=== PATIENT | male | born 1965 | race Caucasian/White ===

== ENCOUNTER 2020-02-27 05:35 | Emergency (ER) | payer MEDICAID ==
[~2020-02-27] VITALS: Ht 175.3 cm; Wt 62.1 kg
[2020-02-27 05:40] VITALS: Ht 175.3 cm; Wt 62.1 kg
[2020-02-27 06:59] LABS: BASOPHIL % 1.3 % (0-2); RED CELL DISTRIBUTION WIDTH 13.1 % (11.5-14.5)
[2020-02-27 07:15] LABS: CALCIUM 9.2 mg/dL (8.5-10.1); CARBON DIOXIDE 32.8 mmol/L (21-32); CHLORIDE SERUM 96 mmol/L (98-107); GFR1 > 60 mL/min; GLUCOSE SERUM 113 mg/dL (74-106); POTASSIUM SERUM 3.5 mmol/L (3.5-5.1); SODIUM SERUM 135 mmol/L (136-145)
[2020-02-27 07:16] LABS: ALKALINE PHOSPHATASE 93 U/L (46-116); ALT/SGPT 35 U/L (16-63); AST/SGOT 31 U/L (15-37); BILIRUBIN TOTAL 0.2 mg/dL (0.20-1.00); LIPASE 68 IU/L (73-393)
[2020-02-27 07:18] LABS: PLATELET COUNT 639 x10^3mcL (130-400)
[2020-02-27 07:21] LABS: ALBUMIN 3.2 g/dL (3.4-5.0)
[2020-02-27 07:52] LABS: microscopic required? NO
[2020-02-27 08:20] LABS: AMPHETAMINE QUAL UR NONE DETECTED (See below)
[2020-02-27 08:21] LABS: UA SPECIFIC GRAVITY 1.015 (1.005-1.035); urine erythrocyte NEGATIVE (NEGATIVE)
[2020-02-27 09:00] VITALS: BP 135/78
[2020-02-27] MEDS ORDERED: KEPPRA750 MG PO (13:44)
== END 2020-02-27 09:00 | disposition home or self-care (01) ==
LOC: ED 05:35
PROVIDERS: Emergency Medicine
DX: G89.18 Other acute postprocedural pain (principal); D64.9 Anemia, unspecified; E46 Unspecified protein-calorie malnutrition; F12.20 Cannabis dependence, uncomplicated; G40.909 Epilepsy, unspecified, not intractable, without status epilepticus; G83.89 Other specified paralytic syndromes; F17.210 Nicotine dependence, cigarettes, uncomplicated; Z59.0 Homelessness; Z90.49 Acquired absence of other specified parts of digestive tract; Z88.8 Allergy status to other drugs, medicaments and biological substances; Z88.7 Allergy status to serum and vaccine
CPT/HCPCS: 99406; J7030; Q0092